=== PATIENT | male | born 1945 | race Caucasian/White ===

== ENCOUNTER 2017-06-04 14:18 | Emergency (ER) | payer MEDICARE, OTHER ==
[~2017-06-04 14:18] MED LIST: ALB17R INH; ALP25 PO
--- NOTE | 2017-06-04 14:25 | ER Report ---
History and Physical Time Seen By MD: 14:25 HPI/ROS CHIEF COMPLAINT: Left knee pain HISTORY OF PRESENT ILLNESS: 72-year-old male patient presents to emergency room with complaint of left knee pain. Patient states that he was outside today and noticed that it was a little bit slippery. He states that he did step on some ice and then slipped and fell. He states that when he slipped and fell that he felt like his knee twisted. He states since then he's been having significant amounts of pain especially with walking. He states the pain is always completely resolved with rest. He denies having any numbness tingling to his toes. He states the pain seems to worse right around the kneecap. Patient states he did take approximately 800 mg of ibuprofen today. He denies having any head injury, dizziness, nausea, vomiting. REVIEW OF SYSTEMS: Respiratory: No cough, no dyspnea. Cardiovascular: No chest pain, no palpitations. Gastrointestinal: No vomiting, no abdominal pain. Musculoskeletal: As noted above Allergies: Coded Allergies: No Known Drug Allergies (Verified Allergy, Mild, 09/25/07) Home Meds Active Scripts Hydrocodone Bit/Acetaminophen (HYDROCODON-ACETAMINOPHEN 5-325) 1 Each Tablet, 1 EACH PO Q4-6H Y for PAIN, #12 TAB Prov:AGUSMARIO TUBE MAKER 06/04/17 Reported Medications Hctz/Bisoprolol (ZIAC 10-6.25 MG TABLET) 1 Ea Tab, 1 EA PO QDAY, TAB 06/04/17 Alprazolam (Xanax) 0.25 Mg Tab, 0.125 MG PO QHS 09/25/07 Discontinued Reported Medications Albuterol (Proventil Inhaler) 17 Gm Inh, 0 INH 1-2 PUFFS FOUT TIMES A DAY 09/25/07 Past Medical/Surgical History Patient has a past medical history of hypertension, occasional alcohol use. Patient has a surgical history of total hip replacement. Reviewed Nurses Notes: Yes Constitutional Vital Sign - Last 24 Hours 06/04/17 06/04/17 06/04/17 06/04/17 14:25 14:25 14:30 15:00 Temp 97.8 Pulse 69 Resp 20 B/P (MAP) 137/79 (98) 137/79 123/78 (93) 124/77 (93) Pulse Ox 92 O2 Delivery Room Air 06/04/17 15:30 B/P (MAP) 109/71 (84) Physical Exam General Appearance: The patient is alert, has no immediate need for airway protection and no current signs of toxicity. Respiratory: Chest is non tender, lungs are clear to auscultation. Cardiac: regular rate and rhythm Gastrointestinal: Abdomen is soft and non tender, no masses, bowel sounds normal. Musculoskeletal: Neck: Neck is supple and non tender. Extremities have full range of motion and are non tender. Patient has tenderness to the medial aspect of the left knee, no tenderness to palpation to the patella. Skin: No rashes or lesions. DIFFERENTIAL DIAGNOSIS: After history and physical exam differential diagnosis was considered for knee sprain, knee contusion, fracture. Medical Decision Making EKG/Imaging Imaging KNEE 4 VIEW LEFT Indication: Fall. Knee pain. Comparison: None available Findings: 4 views left knee were obtained. There is an acute avulsion type fracture seen arising from the medial condyle of the distal femur. This may be related to the medial collateral ligament origin. The fracture fragment is distracted slightly medially from its site of origin. No other acute fracture deformity is seen. There is 3 compartment osteoarthritis which is moderate to severe and most pronounced within the lateral compartment. There is a bipartite patella. Large joint effusion seen on the lateral view. IMPRESSION: 1. Acute avulsion type fracture arising from the medial condyle of the distal left femur. This may be related to the MCL origin. 2. Large joint effusion. 3. Lateral compartment predominant osteoarthritis. Report Dictated By: Arvind Sarabia at 06/04/2017 3:02 PM Report E-Signed By: Arvind Sarabia at 06/04/2017 3:05 PM ED Course/Re-evaluation ED Course Patient is admitted and examined, history and physical were obtained. Differential diagnoses were considered. On examination the patient has tenderness especially to the medial aspect of the left knee. X-rays done of the left knee which shows an avulsion fracture where the MCL would connect. Discussed this with patient. We did place him in a knee immobilizer. Patient was able to get up and walk around. Patient states he had significant improvement in comfort with the left knee. We will go ahead and discharge patient home at this time. He is to follow-up with orthopedics. I did give him a prescription for a limited supply of pain medication that he is to take that as needed for pain. The patient verbalized understanding and agreement with plan. Decision to Disposition Date: Jun 04, 2017 Decision to Disposition Time: 15:25 Depart Departure Latest Vital Signs Vital Signs Date Time Temp Pulse Resp B/P (MAP) Pulse Ox O2 Delivery O2 Flow Rate FiO2 06/04/17 15:30 109/71 (84) 06/04/17 14:25 97.8 69 20 92 Room Air Impression: Primary Impression: Avulsion fracture Condition: Improved Disposition: HOME OR SELF-CARE Referrals: ANTOINE LEY DO (PCP) HRAVEY LEONG MD New Scripts Hydrocodone Bit/Acetaminophen (HYDROCODON-ACETAMINOPHEN 5-325) 1 Each Tablet 1 EACH PO Q4-6H Y for PAIN, #12 TAB Prov: MARIO GOLDSMITH 06/04/17 Patient Instructions: Avulsion Fracture (ED) Additional Instructions: Limit activity by pain. Ice the knee 2-3 times a day for 20-30 minutes. You may take the knee immobilizer off when sleeping or showering Follow up with [facility], call Tuesday to make an appointment. Return to the ER with uncontrollable pain or numbness to the Left lower leg. You may take Ibuprofen as needed for pain in addition to the pain medication. Don't take any additional Tylenol while on the pain medication. MARIO GOLDSMITH Jun 04, 2017 14:25
[2017-06-04] MEDS ORDERED: ZIA10 PO (14:35)
--- NOTE | 2017-06-04 15:09 | RADIOLOGY IMAGING REPORT ---
FACILITY: [facility] PATIENT NAME: David Brannon : 1945 MR: [id number] V: [id number] EXAM DATE: ORDERING PHYSICIAN: MARIO GOLDSMITH TECHNOLOGIST: Location: [facility] [place] Patient: David Brannon : 1945 Visit/Account:[id number] Date of Sevice: 06/04/2017 KNEE 4 VIEW LEFT Indication: Fall. Knee pain. Comparison: None available Findings: 4 views left knee were obtained. There is an acute avulsion type fracture seen arising from the medial condyle of the distal femur. Th is may be related to the medial collateral ligament origin. The fracture fragment is distracted sligh tly medially from its site of origin. No other acute fracture deformity is seen. There is 3 compartme nt osteoarthritis which is moderate to severe and most pronounced within the lateral compartment. The re is a bipartite patella. Large joint effusion seen on the lateral view. IMPRESSION: 1. Acute avulsion type fracture arising from the medial condyle of the distal left femur. This may be related to the MCL origin. 2. Large joint effusion. 3. Lateral compartment predominant osteoarthritis. Report Dictated By: Arvind Sarabia at 06/04/2017 3:02 PM Report E-Signed By: Arvind Sarabia at 06/04/2017 3:05 PM WSN:[id number]
[2017-06-04] MEDS ORDERED: HYDR-385 PO (15:23)
[2017-06-04 15:30] VITALS: BP 109/71
== END 2017-06-04 15:48 | disposition home or self-care (01) ==
LOC: ER 14:27
DX: S72.435A Nondisplaced fracture of medial condyle of left femur, initial encounter for closed fracture (principal); M25.462 Effusion, left knee
CPT/HCPCS: 73564; 99283; L1830

== ENCOUNTER → 2017-08-24 | Outpatient (CLI) | payer MEDICARE, OTHER ==
[~2017-08-24] MED LIST changes: +HYDR-385 PO; +ZIA10 PO
--- NOTE | 2017-08-24 13:50 | RADIOLOGY IMAGING REPORT ---
FACILITY: [facility] PATIENT NAME: David Brannon : 1945 MR: [id number] V: [id number] EXAM DATE: ORDERING PHYSICIAN: LILO TAVAREZ TECHNOLOGIST: Location: [facility] [place] Patient: David Brannon : 1945 Visit/Account:[id number] Date of Sevice: 08/24/2017 Exam type: VENOUS DOPP LOW LEFT EXTREMITY History: Left knee pain, status post trauma, posterior knee mass with swelling Comparison: Left knee series June 04, 2017. Findings: The left lower extremity veins are imaged including the left common femoral vein, greater saphenous v ein, superficial femoral vein, popliteal vein, posterior tibial vein, anterior tibial vein and perone al veins revealing no evidence intraluminal thrombi. The veins were compressible and demonstrated au gmentation. Incidentally noted in the left popliteal fossa is a 4.9 x 4.4 x 2 cm complex collection. This could represent a large hematoma or complex popliteal cyst IMPRESSION: 1. No sonographic evidence DVT involving the left lower extremity veins 4.9 x 4.4 x 2 cm complex collection in the left popliteal fossa which may represent a large hematoma or complex popliteal cyst Report Dictated By: Kourtney Reina MD at 08/24/2017 1:42 PM Report E-Signed By: Kourtney Reina MD at 08/24/2017 1:45 PM WSN:[id number]
== END ==
LOC: US 11:32
PROVIDERS: ATTEND Orthopaedic Surgery
DX: M25.562 Pain in left knee (principal); R22.42 Localized swelling, mass and lump, left lower limb